=== PATIENT | male | born 1935 | race Caucasian/White ===

== ENCOUNTER → 2016-04-07 | Outpatient (CLI) | payer OTHER, BC ==
--- NOTE | 2016-04-07 10:39 | US ---
Renal Sonogram Indications: Elevated serum creatinine. Findings: The renal cortex of both kidneys has minimally increased echogenicity relative to the under lying pyramids. Minimal bilateral renal atrophy and focal scarring. No hydronephrosis or shadowing re nal calculi. A benign 2.1 x 2.0 x 1.5 cm cyst resides in the central right kidney near the hilum. Right kidney: 11.8 cm in length x 6.1 x 6.5 cm. Cortical thickness is 1.4 cm. Left kidney: 11.7 cm in length x 6.1 x 5.5 cm. Cortical thickness is 1.5 cm. The urinary bladder has minimal trabeculation. No mass. The enlarged prostate gland bulges into the b ase of the urinary bladder. Prevoid volume: 505 mL. Postvoid residual: 431 mL. Impression: 1. No hydronephrosis. 2. Suggest medical renal disease. 3. Postvoid residual and enlarged prostate gland.
== END ==
LOC: FIMAGING 08:37
DX: N40.0 Benign prostatic hyperplasia without lower urinary tract symptoms (principal); R33.9 Retention of urine, unspecified

== ENCOUNTER → 2016-11-15 | Outpatient (CLI) | payer OTHER, BC | LOC: FIMAGING 08:54 | PROVIDERS: ATTEND Orthopaedic Surgery | DX: Z01.818 Encounter for other preprocedural examination (principal); M17.12 Unilateral primary osteoarthritis, left knee; I70.8 Atherosclerosis of other arteries ==

== ENCOUNTER 2016-11-28 05:45 | Inpatient (IN) | payer OTHER, BC ==
[2016-11-28] MEDS ORDERED: TRANEXAMIC ACID 950 MG in NS 100 ML IV ONE (06:00)
[2016-11-28] MEDS ORDERED: ROPIVACAINE 0.2% 80 MG, EPINEPHrine 0.2 MG, KETOROLAC TROMETHAMINE 30 MG in BAG 0 ML IU ONE (06:00)
[2016-11-28] MEDS ORDERED: POVIDONE-IODINE 20 ML in SODIUM CL IRRIG SOLUTION 500 ML IRR ONE (06:00)
[2016-11-28] MEDS ORDERED: FAMOTIDINE 20 MG TAB PO ONE (06:02)
[2016-11-28] MEDS ORDERED: ceFAZolin 2 GM/DEXTROSE 100 ML IV ONE (06:02)
[2016-11-28] MEDS ORDERED: ACETAMINOPHEN 325 MG TAB PO ONE (06:02)
[2016-11-28] MEDS ORDERED: DEXAMETHASONE 4 MG/ML VIAL IVP ONE (06:02)
[2016-11-28] MEDS ORDERED: LR 1,000 ML IV ONE (06:17)
[2016-11-28] MEDS ORDERED: LIDOCAINE 1% 2 ML INJ ID PRN (06:17)
--- NOTE | 2016-11-28 06:48 | PDANEPAE ---
ANE History of Present Illness 81 yo M w OA here for L TKA ANE Past Medical History - Cardiovascular History Hx Hypertension: Yes Hx Arrhythmias: No Hx Chest Pain: No Hx Coronary Artery / Peripheral Vascular Disease: No Hx CHF / Valvular Disease: No Hx Palpitations: No - Pulmonary History Hx COPD: No Hx Asthma/Reactive Airway Disease: No Hx Recent Upper Respiratory Infection: No Hx Oxygen in Use at Home: No Hx Sleep Apnea: No Sleep Apnea Screening Result - Last Documented: Positive - Neurologic History Hx Cerebrovascular Accident: No Hx Seizures: No Hx Dementia: No - Endocrine History Hx Diabetes: No - Renal History Hx Renal Disorders: Yes Renal History Comment: BPH - Liver History Hx Hepatic Disorders: No - Neurological & Psychiatric Hx Hx Neurological and Psychiatric Disorders: No - Cancer History Hx Cancer: No - Congenital Disorder History Hx Congenital Disorders: No - GI History Hx Gastrointestinal Disorders: Yes Gastrointestinal History Comment: COLONOSCOPY WITH REMVL POLYPS AND EGD. DILATION DONE. STILL SOME ESOPHAGEAL DIFFICULTY WITH SWALLOWING AT TIMES - Other Health History Other Health History: LINGERING JACQUELINE FOOT FUNGUS. OSTEOARTHRITIS. TINNITUS - Chronic Pain History Chronic Pain: Yes (LT KNEE/) - Surgical History Prior Surgeries: RT BUNIONECTOMY 2013. LT CATARACT. APPY. RT ING HERNIA. HEMORRHOIDECTOMY ANE Review of Systems - Exercise capacity METS (RN): 4 METS ANE Patient History - Allergies Allergies/Adverse Reactions: No Known Allergies Allergy (Unverified 02/05/09 11:06) - Home Medications Home Medications: Aspirin [Aspirin 81mg (*)] 81 mg PO HS 11/10/16 [Last Taken 11/21/16] C/E/Zn/Cu/OM3/DHA/EPA/LUT/ZEAX [Preservision Areds 2 Softgel] 1 each PO DAILY [Last Taken 11/21/16] Calcium Carbonate/Vitamin D3 [Calcium 600 + D3 Softgel] 1 each PO DAILY [Last Taken 11/21/16] Cholecalciferol Vit D3 [Vitamin D3 (*)] 1,000 units PO DAILY 11/10/16 [Last Taken 11/21/16] Glucosamine Sulfate [Glucosamine Sulfate 500 MG (*)] 1,500 mg PO DAILY 11/10/16 [Last Taken 11/21/16] Herbals/Supplements -Info Only 1 ea PO DAILY 11/10/16 [Last Taken 11/21/16] Hydrochlorothiazide [HCTZ (*)] 25 mg PO DAILY 11/10/16 [Last Taken 11/27/16 09: 00] Multivitamins [Multivitamin (*)] 1 each PO DAILY 11/10/16 [Last Taken 11/21/16] Nature Throid 16.25mg 16.25 mg PO DAILY 11/10/16 [Last Taken 11/28/16 05:15] [place]-3 Fatty Acids [Fish Oil 1000 mg (*)] 1,000 mg PO DAILY 11/10/16 [Last Taken 11/21/16] Tamsulosin HCl [Flomax 0.4 MG (*)] 0.4 mg PO DAILY 11/10/16 [Last Taken 05:15] Vitamin B Complex [B Complex] 1 each PO DAILY 11/10/16 [Last Taken 11/21/16] - NPO status NPO Status: no food or drink >8 hours - Anes Hx Anes Hx: no prior problems - Smoking Hx Smoking Status: Former smoker - Alcohol Use Alcohol Use: Sober - Family Anes Hx Family Anes Hx: none ANE Labs/Vital Signs - Vital Signs Vital Signs: reviewed preoperatively; see RN documention for details Height: 180.34 cm Weight: 95.254 kg ANE Physical Exam - Airway Neck exam: FROM Mallampati Score: Class 2 Mouth exam: normal dental/mouth exam - Pulmonary Pulmonary: no respiratory distress, clear to auscultation - Cardiovascular Cardiovascular: regular rate and rhythym, no murmur, rub, or gallop - ASA Status ASA Status: II ANE Anesthesia Plan Anesthesia Plan: GA with mask, spinal Regional Anesthesia: adductor canal FNB
[2016-11-28] MEDS ORDERED: VANCOMYCIN 1 GM VIAL ONE (06:49)
[2016-11-28] MEDS ORDERED: ceFAZolin 1 GM/5 ML SYR ONE (06:50)
[2016-11-28] MEDS ORDERED: PROPOFOL/EMULSION 500 MG/50 ML BOTTLE IV ONE ×2 (07:06→08:09)
--- NOTE | 2016-11-28 07:10 | PDHPUP ---
History & Physical Update H&P update statement: This history and physical update is based on an assessment of the patient which was completed after admission or registration (within 24 hours), but prior to the surgery/procedure. H&P update: H&P reviewed & patient examined, no change in patient's condition since H&P completed
[2016-11-28] MEDS ORDERED: LIDOCAINE 2% JELLY 5 ML TUBE ONE (07:40)
[2016-11-28] MEDS ORDERED: NALOXONE HCL 0.4 MG/ML INJ IVP PRN (08:15)
[2016-11-28] MEDS ORDERED: ACETAMINOPHEN 500 MG TAB PO PRN (08:15)
[2016-11-28] MEDS ORDERED: fentaNYL 100 MCG/2 ML INJ IVP PRN (08:15)
[2016-11-28] MEDS ORDERED: OXYCODONE/APAP 5/325 TAB PO PRN (08:15)
[2016-11-28] MEDS ORDERED: ONDANSETRON 4 MG/2 ML VIAL IVP PRN ×2 (08:15→09:54)
[2016-11-28] MEDS ORDERED: clonIDINE 1 MG/10 ML VIAL EP ONE (08:16)
[2016-11-28] MEDS ORDERED: ROPIVACAINE HCL 150 MG/30 ML INJ ONE (08:16)
[2016-11-28] MEDS ORDERED: epHEDrine SULFATE 10 MG/ML SYR ONE (09:17)
--- NOTE | 2016-11-28 09:37 | POSTOPPROG ---
Post Op Note Date of Operation: 11/28/16 Surgeon: Kashif Hussein Home Theatre Technician: Joshua Bagley/Gerardo Abdi Anesthesiologist: Lenin Desir Anesthesia: IV Sedation, Spinal Post-op Diagnosis: Left knee degenerative arthritis with varus deformity. Procedure: Left MAKOplasty total knee arthroplasty, [place] triathlon prosthesis. Inf/Abcess present in the surg proc area at time of surgery?: No EBL: 50-100 (Adductor canal block.)
[2016-11-28] MEDS ORDERED: MAGNESIUM HYDROXIDE 30 ML UDCUP PO PRN (09:54)
[2016-11-28] MEDS ORDERED: ONDANSETRON DISINTEGRATING 4 MG TAB PO PRN (09:54)
[2016-11-28] MEDS ORDERED: traMADol 50 MG TAB PO PRN (09:54)
[2016-11-28] MEDS ORDERED: LACTULOSE 20 GM/30 ML UDCUP PO PRN (09:54)
[2016-11-28] MEDS ORDERED: POLYETHYLENE GLYCOL 3350 17 GM PKT PO PRN (09:54)
[2016-11-28] MEDS ORDERED: CYCLOBENZAPRINE 10 MG TAB PO PRN (09:54)
[2016-11-28] MEDS ORDERED: PROMETHAZINE HCL 25 MG/ML INJ IVP PRN (09:54)
[2016-11-28] MEDS ORDERED: METOCLOPRAMIDE 10 MG/2 ML VIAL IVP PRN (09:54)
[2016-11-28] MEDS ORDERED: DIPHENOXYLATE/ATROPINE LOMOTIL 1 TAB PO PRN (09:54)
[2016-11-28] MEDS ORDERED: diphenhydrAMINE 25 MG CAP PO PRN (09:54)
[2016-11-28] MEDS ORDERED: TEMAZEPAM 15 MG CAP PO PRN (09:54)
[2016-11-28] MEDS ORDERED: PROMETHAZINE HCL 25 MG SUPPR PR PRN (09:54)
[2016-11-28] MEDS ORDERED: BISACODYL 10 MG SUPP PR PRN (09:54)
[2016-11-28] MEDS ORDERED: LR 1,000 ML IV SCH (10:00)
--- NOTE | 2016-11-28 10:27 | GOP ---
[f rep st] OPERATIVE REPORT DATE OF OPERATION: 11/28/2016 SURGEON: Kashif Hussein MD DIRECTOR INSURANCE: Jasper Bagley, PAC and Gerardo Abdi CFA. ANESTHESIA: A combination of Marcaine spinal, IV sedation, and adductor canal block. ANESTHESIOLOGIST: Lenin Desir MD. PREOPERATIVE DIAGNOSIS: Left knee severe degenerative arthritis with varus deformity. POSTOPERATIVE DIAGNOSIS: Left knee severe degenerative arthritis with varus deformity. PROCEDURE PERFORMED: Left knee Abraham plasty total knee arthroplasty, Jadyn triathlon prosthesis. FINDINGS: ESTIMATED BLOOD LOSS: The estimated blood loss following deflation of the tourniquet was about 100 cc. DESCRIPTION OF PROCEDURE: The patient was given 2 g of preoperative IV Ancef within 60 minutes of surgery. He also received IV tranexamic acid at a dose of 10 mg/kg. He was placed on the operating room table and given spinal anesthesia with Marcaine by Dr. Desir. He was then placed supine and given IV sedation. A Rene catheter was not used. He wore a stocking and SCD on the nonoperative leg. His left lower extremity was prepped with ChloraPrep from the upper thigh tourniquet to the tips of the toes. It was draped free using sterile sheets, stockinette, and Ioban plastic adhesive drape. The lower leg was wrapped with compressive Coban. The [employer] time-out was performed to verify the correct patient identity and the correct surgical side and site. The [place] time-out was also performed. The Zimbraayo leg holding device was sterilely attached to the operating room table and used throughout the procedure to help position the knee. Two 3 mm partially threaded pins were inserted bicortical into the anteromedial cortex of the tibia about 4 or 5 inches distal to the tibial tubercle. At this point, the leg was exsanguinated with a 6-inch compressive wrap, and the pneumatic tourniquet was inflated to 250 mmHg. A straight midline incision was made centered on the patella. Subcutaneous tissues were sharply divided, and hemostasis was obtained using electrocautery. A medial subcutaneous flap was developed, and the capsule and synovium were opened in a medial parapatellar fashion. Extensive degenerative changes were present, particularly in the medial compartment where he was eroded down to subchondral bone. The medial capsule and periosteum were elevated off the rim of the medial tibial plateau all the way around to the posteromedial corner. His medial collateral ligament was moderately released to help balance the medial side of the knee. Two 3 mm partially threaded pins were inserted in the medial aspect of the distal femur in the supracondylar region. The femoral check point was inserted just anterior and slightly distal to the 2 pins. The tibial check point was inserted in the anteromedial cortex of the proximal tibia, about an inch distal to the joint line. The arrays were attached to both the femur and the tibia. I confirmed that the arrays were visualized by the computer. In order to improve exposure, the patella was prepared first. The original thickness of the patella was measured. Peripheral osteophytes were removed. I cut a flat surface on the back of the patella. It was sized for a 39 mm symmetric patella, which was 11 mm in thickness. I removed enough bone from the patella such that the remaining bone plus the thickness of the patellar component recreated the original thickness of the patella. The composite thickness was 25 mm. The bony anatomy of the knee was registered on the computer, starting with center rotation of the femoral head followed by the medial and lateral malleoli. The femoral anatomy was registered followed by the tibial anatomy. I then performed the dynamic joint balancing. As expected, he was tight medially. The preoperative plan called for a size 6 femur and a size 7 tibia with a 9 mm tibial insert. In order to achieve proper gap balancing, I shifted the tibia into 1 degree of varus. I externally rotated the femoral component 2 degrees and I shifted the femoral component anteriorly 2 mm. I then achieved 18 mm medial and lateral gaps in both full extension and flexion. The femoral component was in 4 degrees of flexion. The robotic controlled saw was then brought in. The robot was registered. I then made the distal femoral cut followed by the posterior chamfer cut, the anterior cut and the anterior chamfer cut. The robotic arm was then used to make the proximal tibial cut. I then used the appropriate jig to create the notch in the femur with the power saw and osteotome to accommodate the posterior stabilized femoral component. The size 6 femoral component was applied. I was careful to center the component on the distal femur. The tibia was prepared. It was sized for a size 7 component. The central fin was punched. I then inserted a trial tibial component, trial femoral component and a 9 mm trial posterior stabilized tibial insert. The knee came to full extension and flexed to 125 degrees. His collateral ligaments were stable and balanced in full extension and 90 degrees of flexion. The computer read 18 mm of medial and lateral gaps in full extension and 90 degrees of flexion. The posterior compartment was cleared of meniscal remnants. Osteophytes were removed from the back of the femoral condyles. 40 mL of the joint anesthetic cocktail were injected into the posterior capsule, the periarticular structures , the quadriceps muscle and tendon areas, and the subcutaneous tissues along the skin edges. A second dose of IV tranexamic acid was given at a dose of 10 mg/kg. The surfaces were prepared for cementing. They were carefully cleaned with the pulsating lavage irrigation and thoroughly dried. A CarboJet device was used to blow dry the cancellous surfaces. A double batch of high viscosity methylmethacrylate cement with 2 g of powdered vancomycin added was mixed. While it was still in a semi liquid state, all [address] components were cemented in place. Excess cement was removed before it hardened. The 9 mm tibial insert was inserted and locked into place. The tourniquet was deflated and the total tourniquet time was 1 hour and 22 minutes. The knee was thoroughly irrigated 1 final time with a dilute Betadine solution. The vastus medialis portion of the extensor mechanism was repaired with several interrupted [id number] #2 FiberWire sutures. The capsule and synovium were closed first with multiple interrupted [id number] 0 PDS sutures, followed by a running #2 barbed Ethicon Stratafix PDO suture. The subcutaneous tissues were closed with a running 0 barbed Ethicon Stratafix Monoderm suture. The skin was closed with a running 3-0 barbed Ethicon Stratafix Monoderm subcuticular suture. The skin was sealed with half-inch Steri-Strips. The wound was covered with a 9 cm x 25 cm Aquacel AG surgical dressing. The knee was wrapped with a 6-inch compressive wrap. A long-leg YIFAN stocking and an SCD were applied followed by the cooling device. IMPLANTS: I used a size 6 cemented Jadyn triathlon posterior stabilized femoral component, size 7 cemented tibial base plate, and a 9 mm posterior stabilized tibial insert and a 39 mm cemented symmetrical all-polyethylene patellar component. COUNTS: The sponge and needle count were correct on 2 occasions. The patient was awakened from anesthesia, transferred to his hospital [facility] and taken to PACU in satisfactory condition. There were no recognized intraoperative complications. In the PACU, for additional postoperative pain control, Dr. Desir performed an adductor canal block. Joshua Bagley and Gerardo Abdi acted as surgical assistants. Their assistance was a medical necessity to safely complete the procedure. Copy requested to: Weston Bhat MD /[id number]/MODL MTDD
[2016-11-28] MEDS: KETOROLAC 30 MG/1 ML SDV IVP PRN ×2 (12:39→19:04)
[2016-11-28] MEDS: ACETAMINOPHEN 325 MG TAB PO SCH ×2 (12:40→19:05)
[2016-11-28] MEDS: ceFAZolin 2 GM/DEXTROSE 100 ML IV SCH ×2 (14:13→21:30)
[2016-11-28] MEDS: oxyCODONE IR 5 MG TAB PO PRN ×2 (14:22→17:25)
--- NOTE | 2016-11-28 18:26 | POSTANESTH ---
Post Anesthetic Evaluation Cardiovascular Status: Normal, Stable, Similar to Pre-Op Cond Respiratory Status: Normal, Stable, Similar to Pre-op Cond. Level of Consciousness/Mental Status: Can Participate in Eval, Alert and Oriented Pain Control: Adequate, Prn Tx Ordered Nausea/Vomiting Control: Adequate, Prn Tx Ordered Complications Possibly Related to Anesthesia: None Noted
[2016-11-28] MEDS: SENNOSIDES/DOCUSATE SODIUM TAB PO SCH (19:41)
[2016-11-28] MEDS: FAMOTIDINE 20 MG TAB PO SCH (19:41)
[2016-11-28] MEDS: ASPIRIN 325 MG TAB PO SCH (19:42)
[2016-11-29] MEDS: ACETAMINOPHEN 325 MG TAB PO SCH ×3 (00:22→12:38)
[2016-11-29 06:01] LABS: HEMATOCRIT 36.6 % (40.0-51.0); HEMOGLOBIN 12.3 g/dL (13.7-17.5)
[2016-11-29 08:02] VITALS: PULSE 47; RESP 18; TEMP 97.9; O2SAT 98
[2016-11-29] MEDS: ASPIRIN 325 MG TAB PO SCH (08:05)
[2016-11-29] MEDS: SENNOSIDES/DOCUSATE SODIUM TAB PO SCH (08:08)
[2016-11-29] MEDS: FAMOTIDINE 20 MG TAB PO SCH (08:09)
[2016-11-29] MEDS: KETOROLAC 30 MG/1 ML SDV IVP PRN (08:09)
[2016-11-29 08:10] VITALS: BP 116/65
[2016-11-29] MEDS ORDERED: PRESERVISION AREDS2 FORMULA EYE VIT 1 EACH PO SCH (09:00)
[2016-11-29] MEDS ORDERED: FERROUS SULFATE 140 MG TAB.ER PO SCH (09:00)
[2016-11-29] MEDS ORDERED: TAMSULOSIN HCL 0.4 MG CAP PO SCH (09:00)
[2016-11-29] MEDS ORDERED: NATURE THROID PO SCH (09:00)
[2016-11-29] MEDS ORDERED: HYDROCHLOROTHIAZIDE 25 MG TAB PO SCH (09:00)
--- NOTE | 2016-11-29 09:26 | SOAPPROG ---
SOAP Progress Note Assessment/Plan: Assessment: Awake and alert. Afebrile. Very little pain so far. His dressing is dry. He lacks 5 degrees of full extension and flexes to 110 degrees. He has been up and walking. H&H is good. Postop films look good. Plan: Up with PT for walking in the reyna and stair instruction. Discharge later today. 11/29/16 09:23 Objective: Vital Signs Temp Pulse Resp BP Pulse Ox 36.6 C 47 L 18 116/65 98 11/29/16 07:56 11/29/16 07:56 11/29/16 07:56 11/29/16 08:07 11/29/16 07:56 Laboratory Results 11/29/16 04:35 11/28/16 11/29/16 11/30/16 05:59 05:59 05:59 Intake Total 2060 Output Total 960 Balance 1100 ICD10 Worksheet Patient Problems: Problems Problem Status Onset Osteoarthritis of left knee Acute
--- NOTE | 2016-11-29 09:34 | PDIAF ---
- Diagnosis Code Status: Full Code - Medication Management Discharge Medications: Medications to Continue on Transfer Aspirin [Aspirin 81mg (*)] 81 mg PO HS 11/10/16 [Last Taken 11/21/16] C/E/Zn/Cu/OM3/DHA/EPA/LUT/ZEAX [Preservision Areds 2 Softgel] 1 each PO DAILY [Last Taken 11/21/16] Calcium Carbonate/Vitamin D3 [Calcium 600 + Vit D 400 Softgl] 1 each PO DAILY [Last Taken 11/21/16] Cholecalciferol Vit D3 [Vitamin D3 (*)] 1,000 units PO DAILY 11/10/16 [Last Taken 11/21/16] Glucosamine Sulfate [Glucosamine Sulfate 500 MG (*)] 1,500 mg PO DAILY 11/10/16 [Last Taken 11/21/16] Herbals/Supplements -Info Only 1 ea PO DAILY 11/10/16 [Last Taken 11/21/16] Hydrochlorothiazide [HCTZ (*)] 25 mg PO DAILY 11/10/16 [Last Taken 11/27/16 09: 00] Multivitamins [Multivitamin (*)] 1 each PO DAILY 11/10/16 [Last Taken 11/21/16] Nature Throid 16.25mg 16.25 mg PO DAILY 11/10/16 [Last Taken 11/28/16 05:15] [place]-3 Fatty Acids [Fish Oil 1000 mg (*)] 1,000 mg PO DAILY 11/10/16 [Last Taken 11/21/16] Tamsulosin HCl [Flomax 0.4 MG (*)] 0.4 mg PO DAILY 11/10/16 [Last Taken 05:15] Vitamin B Complex [B Complex] 1 each PO DAILY 11/10/16 [Last Taken 11/21/16] Acetaminophen [Tylenol 325mg (*)] 650 mg PO Q6HRS #0 tab 11/28/16 [Last Taken Unknown] Ferrous Sulfate [Slow Fe 140 MG (*)] 140 mg PO DAILY #30 tab.er 11/28/16 [Last Taken Unknown] Ondansetron Odt [Zofran Odt 4 mg (*)] 4 mg PO Q4HRS PRN #15 tab 11/28/16 [Last Taken Unknown] Sennosides/Docusate Sodium [Senokot-S] 1 - 2 tab PO BID #0 tab 11/28/16 [Last Taken Unknown] oxyCODONE IR [Oxycodone Ir (*)] 5 - 10 mg PO Q3HRS PRN #30 tab 11/28/16 [Last Taken Unknown] traMADol [Ultram 50 mg (*)] 50 mg PO Q6HRS PRN #30 tab 11/28/16 [Last Taken Unknown] Discharge Medications: Refer to the Discharge Home Medication list for PRN reason. - Orders Services needed: Physical Therapy Diet Recommendation: no restrictions on diet Diet Texture: Regular Texture Diet - Follow Up Care Current Providers and Referrals: HEATHER MARAVILLA [Primary Care Provider] - Kashif Hussein MD [Medical Doctor] - 12/11/16
--- NOTE | 2016-11-29 11:01 | GDS ---
[f rep st] DISCHARGE SUMMARY ADMISSION DIAGNOSIS: Left knee severe degenerative arthritis. DISCHARGE DIAGNOSIS: Left knee severe degenerative arthritis. OPERATION PERFORMED: 11/28/2016, left knee MARCELLE total knee arthroplasty. POSTOPERATIVE COMPLICATIONS: None. CONDITION ON DISCHARGE: Improved. DESCRIPTION OF HOSPITAL COURSE: The patient was admitted to the hospital on the morning of surgery. His admission CBC, electrolytes, BUN, and creatinine were all normal. The same day, under a combination of Marcaine, spinal, IV sedation, and adductor canal block, he underwent a left total knee arthroplasty using the MAKOplasty robotic technique. Postoperatively, he was treated with multimodal DVT prophylaxis, including aspirin. On the first postoperative day, his hemoglobin and hematocrit were 12.3 and 36.6. He did not require any transfused blood. He was seen by Physical Therapy and made good progress with ambulation, knee range of motion, and stairs. By the time of discharge, he was afebrile, and his wound was clean and dry. DISPOSITION: The patient is discharged to his home. He will have home physical therapy. Continue aspirin 325 mg p.o. daily for 21 days. Continue YIFAN stockings for 1 week. He has prescriptions for oxycodone and tramadol for pain control. I will see him back in the office on 12/11/2016. If there are any problems, he is to call me at the office. Copy requested to: Dr. Weston Bhat /[id number]/MODL MTDD
--- NOTE | 2016-12-03 17:05 | ASMTCMCOM ---
CM Note CM Note Notes: Late entry due to [employer] down time: 11/29/16 PT rec outpat vs. home pt does want [facility], is agreeable to surgeons pre-referral to [facility]. Date Signed: 11/30/2016 04:09 PM Electronically Signed By:Delicia Brower
--- NOTE | 2016-12-03 17:06 | ASDISCHSUM ---
Discharge Information Plan Status:Home with Home Health Medically Cleared to Leave: Discharge Date:11/29/2016 12:54 PM CM D/C Disposition:Home Health Service ADT D/C Disposition:[id number] Projected Discharge Date:11/29/2016 12:54 PM Transportation at D/C: Discharge Delay Reason: Follow-Up Date:11/29/2016 12:54 PM Discharge Slot: Final Diagnosis: Placement Information Patient Contact Information Contact Name:VASYL Relationship: Address:[address] [place] [address] City:[facility] Phone: [facility]/Zip Code:[place] [address] Email: Financial Information Financial Class: Primary Plan Desc:MEDICARE INPATIENT Primary Plan Number:[id number] Secondary Plan Desc:[facility] [employer]ERAL PLAN Secondary Plan Number:[id number] Assessment Information [facility] CM Progress Note CM Note CM Note Notes: Late entry due to [employer] down time: 11/29/16 PT rec outpat vs. home pt does want [facility], is agreeable to surgeons pre-referral to [facility]. Date Signed: 11/30/2016 04:09 PM Electronically Signed By:Delicia Brower Intervention Information
== END 2016-11-29 12:54 | disposition home health service (06) | DRG 470 ==
LOC: F3N 05:45
PROVIDERS: ADMIT Orthopaedic Surgery; ATTEND Orthopaedic Surgery
PROC: 8E0Y0CZ Robotic Assisted Procedure of Lower Extremity, Open Approach (ICD-10-PCS; principal; 2016-11-28 07:15)
PROC: 0SRD0J9 Replacement of Left Knee Joint with Synthetic Substitute, Cemented, Open Approach (ICD-10-PCS; principal; 2016-11-28 07:15)
PROC: 8E0YXBZ Computer Assisted Procedure of Lower Extremity (ICD-10-PCS; principal; 2016-11-28 07:15)
DX: M17.32 Unilateral post-traumatic osteoarthritis, left knee (principal); I10 Essential (primary) hypertension; E03.9 Hypothyroidism, unspecified
CPT/HCPCS: 97116-GP; 97161-GP; 97165-GO; C1713; G8978-GP-CI; G8979-GP-CH; G8979-GP-CI; G8980-GP-CI; G8987-GO-CI; G8988-GO-CI; G8989-GO-CI; J0171; J0690; J0735; J1100; J1885; J2704; J2795; J3370

== ENCOUNTER → 2016-12-19 | Outpatient (CLI) | payer OTHER, BC | LOC: FIMAGING 13:19 | PROVIDERS: ATTEND Physician Assistant | DX: M79.662 Pain in left lower leg (principal) ==

== ENCOUNTER → 2017-09-10 | Outpatient (CLI) | payer OTHER, BC | LOC: FIMAGING 08:42 | PROVIDERS: ATTEND Orthopaedic Surgery | DX: M17.11 Unilateral primary osteoarthritis, right knee (principal) ==